=== PATIENT | male | born 1940 | race Caucasian/White ===

== ENCOUNTER 2019-04-14 13:01 | Day surgery (SDC) | payer MEDICARE, OTHER ==
[~2019-04-14] VITALS: Ht 175.3 cm; Wt 66.0 kg
[2019-04-14 14:02] VITALS: BP 124/77
== END 2019-04-14 20:20 | disposition home or self-care (01) ==
LOC: OUT 13:01 → 4NOR 19:00 → OUT 20:20
PROVIDERS: ATTEND Urology
DX: N30.20 Other chronic cystitis without hematuria (principal); E03.9 Hypothyroidism, unspecified; Z72.89 Other problems related to lifestyle; Z79.890 Hormone replacement therapy; Z96.611 Presence of right artificial shoulder joint; Z96.612 Presence of left artificial shoulder joint; Z85.51 Personal history of malignant neoplasm of bladder
CPT/HCPCS: 52224; 88305; 93005; J0690; J1100; J2405; J2704; J3010; J9201; G0378

== ENCOUNTER 2019-11-25 14:25 | Day surgery (SDC) | payer OTHER ==
[~2019-11-25] VITALS: Ht 175.3 cm; Wt 64.9 kg
[~2019-11-25 14:25] MED LIST: ACET650T17 PO; CHOL10003 PO; CIPR-184 PO; LEVO25TA4 PO
[2019-11-25] MEDS ORDERED: LACTATED RINGERS 1,000 ML IV SCH (14:44)
[2019-11-25 15:00] VITALS: BP 127/79
[2019-11-25 15:36] LABS: MICROSCOPIC INDICATED
[2019-11-25] MEDS ORDERED: FENTANYL PF 100 MCG/2ML ONE ×3 (17:08→19:25)
[2019-11-25] MEDS ORDERED: GEMCITABINE HCL 2,000 MG in SODIUM CHLORIDE 0.9% 47.4 ML IS ONE (17:30)
[2019-11-25] MEDS ORDERED: PROMETHAZINE 25 MG/ML, 1ML IV PRN (18:00)
[2019-11-25] MEDS ORDERED: ONDANSETRON 2MG/ML, 2ML IV PRN (18:00)
[2019-11-25] MEDS ORDERED: PROMETHAZINE 25 MG SUPP PR PRN (18:00)
[2019-11-25] MEDS ORDERED: ACETAMINOPHEN 325 MG TABLET PO PRN (18:00)
[2019-11-25] MEDS ORDERED: ONDANSETRON ODT 8 MG PO PRN (18:00)
[2019-11-25] MEDS ORDERED: OXYcodone 5 MG/5 ML ORAL.SOL UDC PO PRN (18:00)
[2019-11-25] MEDS ORDERED: LORazepam 2 MG/ML, 1ML IVPush PRN (18:00)
[2019-11-25] MEDS ORDERED: DEXAMETHASONE 4 MG/ML, 1ML ONE (18:46)
[2019-11-25] MEDS ORDERED: GLYCOPYRROLATE 0.2MG/1ML, 5ML ONE (18:46)
[2019-11-25] MEDS ORDERED: PROPOFOL 10 MG/ML, 20ML ONE (18:46)
[2019-11-25] MEDS ORDERED: SUCCINYLCHOLINE 20 MG/ML, 10ML ONE (18:46)
[2019-11-25] MEDS ORDERED: CEFAZOLIN 1,000 MG ONE (18:46)
[2019-11-25] MEDS ORDERED: NEOSTIGMINE 1 MG/ML, 10ML ONE (18:46)
[2019-11-25] MEDS ORDERED: ONDANSETRON 2MG/ML, 2ML ONE (18:46)
[2019-11-25] MEDS ORDERED: ROCURONIUM 10MG/ML,5ML ONE (18:46)
[2019-11-25] MEDS ORDERED: SUGAMMADEX 200 MG/2 ML IVPush ONE (18:46)
[2019-11-25] MEDS ORDERED: HYDROmorphone 1 MG/ML, 1ML INJ ONE ×2 (19:12→19:26)
[2019-11-25] MEDS ORDERED: OXYcodone 5 MG/5 ML ORAL.SOL UDC ONE (19:12)
[2019-11-25] MEDS: FENTANYL PF 100 MCG/2ML IV PRN ×4 (19:13→19:35)
[2019-11-25] MEDS: HYDROmorphone 1 MG/ML, 1ML INJ IVPush PRN ×3 (19:20→19:30)
[2019-11-25] MEDS ORDERED: DIAZEPAM 5 MG/ML, 2ML ONE (19:47)
[2019-11-25] MEDS ORDERED: DIAZEPAM 5 MG/ML, 2ML IVPush PRN (20:00)
== END 2019-11-25 23:00 | disposition home or self-care (01) ==
LOC: OR 14:25 → 4NE 20:33 → OR 23:00
PROVIDERS: ATTEND Urology
DX: D49.4 Neoplasm of unspecified behavior of bladder (principal); D49.59 Neoplasm of unspecified behavior of other genitourinary organ; C66.2 Malignant neoplasm of left ureter; E03.9 Hypothyroidism, unspecified; M19.90 Unspecified osteoarthritis, unspecified site; Z79.899 Other long term (current) drug therapy; Z87.891 Personal history of nicotine dependence; Z85.51 Personal history of malignant neoplasm of bladder; Z96.611 Presence of right artificial shoulder joint; Z96.612 Presence of left artificial shoulder joint; Z98.890 Other specified postprocedural states
CPT/HCPCS: 52332; 52354; 52500; 74018; 81001; 87086; 88305; 88307; 93005; C1758; C1769; C2617; J0330; J0690; J1100; J1170; J2405; J2704; J2710; J3010; J3360; J7120; 76000; G0378

== ENCOUNTER 2020-05-17 09:47 | Day surgery (SDC) | payer OTHER ==
[~2020-05-17] VITALS: Ht 175.3 cm; Wt 62.8 kg
[2020-05-17] MEDS ORDERED: LEVO50TA5 PO (10:14)
[2020-05-17 10:16] VITALS: BP 132/67
[2020-05-17] MEDS ORDERED: LACTATED RINGERS 1,000 ML IV SCH (10:16)
[2020-05-17] MEDS ORDERED: CHLORHEXIDINE 15 ML UDC MM ONE (10:30)
[2020-05-17 10:43] LABS: ANION GAP 5 mmol/L (5-15); BASOPHILS # (AUTO) 0.04 x10^3/uL (0-0.1); BASOPHILS % (AUTO) 1 % (0-1); CALCIUM 9.3 mg/dL (8.5-10.1); CHLORIDE 109 mmol/L (98-107); CREATININE 1.13 mg/dL (0.7-1.3); EOSINOPHILS # (AUTO) 0.15 x10^3/uL (0-0.4); EOSINOPHILS % (AUTO) 3 % (1-7); LYMPHOCYTES # (AUTO) 1.86 x10^3/uL (1-3.4); LYMPHOCYTES % (AUTO) 31 % (22-44); MD NO; MEAN CORPUSCULAR HEMOGLOBIN 30.8 pg (27.5-34.5); MEAN CORPUSCULAR HGB CONC 33.3 g/dL (33.2-36.2); MEAN CORPUSCULAR VOLUME 92.6 fL (81-97); MEAN PLATELET VOLUME 8.1 fL (7.4-10.4); MONOCYTES # (AUTO) 0.49 x10^3/uL (0.2-0.8); MONOCYTES % (AUTO) 8 % (2-9); NEUTROPHILS # (AUTO) 3.43 x10^3/uL (1.8-6.8); NEUTROPHILS % (AUTO) 57 % (42-75); PLATELET COUNT 210 x10^3/uL (130-400); RED BLOOD COUNT 4.53 x10^6/uL (4.38-5.82); RED CELL DISTRIBUTION WIDTH 14.2 % (9.4-14.8)
[2020-05-17 10:51] LABS: MICROSCOPIC NOT IND
[2020-05-17] MEDS ORDERED: DEXAMETHASONE 4 MG/ML, 1ML ONE ×2 (11:59→13:33)
[2020-05-17] MEDS ORDERED: FENTANYL PF 100 MCG/2ML ONE ×2 (11:59→13:33)
[2020-05-17] MEDS ORDERED: MIDAZOLAM 1 MG/ML, 2ML ONE ×2 (11:59→13:33)
[2020-05-17] MEDS ORDERED: GLYCOPYRROLATE 0.2MG/1ML, 5ML ONE ×2 (11:59→13:33)
[2020-05-17] MEDS ORDERED: LIDOCAINE-MPF 2% ,5ML ONE ×2 (11:59→13:33)
[2020-05-17] MEDS ORDERED: ROCURONIUM 10MG/ML,5ML ONE ×2 (11:59→13:33)
[2020-05-17] MEDS ORDERED: PROPOFOL 10 MG/ML, 20ML ONE ×2 (11:59→13:33)
[2020-05-17] MEDS ORDERED: CEFAZOLIN 1,000 MG ONE (13:33)
[2020-05-17] MEDS ORDERED: OXYcodone 5 MG/5 ML ORAL.SOL UDC PO PRN (14:00)
[2020-05-17] MEDS ORDERED: hydrALAzine 20 MG/ML, 1ML IV PRN (14:00)
[2020-05-17] MEDS ORDERED: KETOROLAC 30 MG/1 ML IV PRN (14:00)
[2020-05-17] MEDS ORDERED: HYDROmorphone 1 MG/ML, 1ML INJ IVPush PRN (14:00)
[2020-05-17] MEDS ORDERED: DIAZEPAM 5 MG/ML, 2ML IVPush PRN (14:00)
[2020-05-17] MEDS ORDERED: HALOPERIDOL 5 MG/ML IV PRN (14:00)
[2020-05-17] MEDS ORDERED: LABETALOL 5MG/ML, 20ML IV PRN (14:00)
[2020-05-17] MEDS ORDERED: ACETAMINOPHEN 325 MG TABLET PO PRN (14:00)
[2020-05-17] MEDS ORDERED: MEPERIDINE/PF 25MG/0.5ML IVPush PRN (14:00)
[2020-05-17] MEDS ORDERED: MIDAZOLAM 1 MG/ML, 2ML IV PRN (14:00)
[2020-05-17] MEDS ORDERED: LORazepam 2 MG/ML, 1ML IVPush PRN (14:00)
[2020-05-17] MEDS ORDERED: ALBUTEROL/IPRATROPIUM 2.5MG/0.5MG, 3 ML NPPB PRN (14:00)
[2020-05-17] MEDS ORDERED: HYDROcodone/APAP 7.5-325MG/15ML UDC PO PRN (14:00)
[2020-05-17] MEDS ORDERED: FENTANYL PF 100 MCG/2ML IV PRN (14:00)
[2020-05-17] MEDS ORDERED: METHOCARBAMOL 1,000 MG in DEXTROSE 5% 100 ML IV PRN (14:00)
[2020-05-17] MEDS ORDERED: ONDANSETRON 2MG/ML, 2ML IVPush PRN (14:00)
[2020-05-17] MEDS ORDERED: DIPHENHYDRAMINE 50 MG/ML, 1ML IVPush PRN (14:00)
[2020-05-17] MEDS ORDERED: EPHEDRINE 50 MG/ML, 1ML IVPush PRN (14:00)
[2020-05-17] MEDS ORDERED: LABETALOL 5MG/ML, 20ML ONE (14:57)
== END 2020-05-17 16:45 | disposition home or self-care (01) ==
LOC: OUT 09:47
PROVIDERS: ATTEND Urology
DX: N13.5 Crossing vessel and stricture of ureter without hydronephrosis (principal); N30.20 Other chronic cystitis without hematuria; N40.0 Benign prostatic hyperplasia without lower urinary tract symptoms; I25.10 Atherosclerotic heart disease of native coronary artery without angina pectoris; E03.9 Hypothyroidism, unspecified; Z79.890 Hormone replacement therapy; Z85.51 Personal history of malignant neoplasm of bladder; Z98.890 Other specified postprocedural states
CPT/HCPCS: 36415; 52204; 52351; 80048; 81003; 85025; 88305; 93005; J0690; J1100; J1885; J2250; J2704; J3010; J7120

== ENCOUNTER 2020-08-02 12:10 | Day surgery (SDC) | payer OTHER ==
[~2020-08-02] VITALS: Ht 175.3 cm; Wt 62.8 kg
[~2020-08-02 12:10] MED LIST changes: +CEFAZOLIN 1,000 MG ONE; +DEXAMETHASONE 4 MG/ML, 1ML ONE; +LEVO50TA5 PO; +NEOSTIGMINE 1 MG/ML, 10ML ONE; +ONDANSETRON 2MG/ML, 2ML ONE; +PROPOFOL 10 MG/ML, 20ML ONE; +ROCURONIUM 10MG/ML,5ML ONE
[2020-08-02 12:57] VITALS: BP 135/75
[2020-08-02] MEDS ORDERED: LACTATED RINGERS 1,000 ML IV SCH (13:00)
[2020-08-02] MEDS ORDERED: CHLORHEXIDINE 15 ML UDC MM ONE (13:00)
[2020-08-02] MEDS ORDERED: FENTANYL PF 250 MCG/5ML ONE (14:00)
[2020-08-02] MEDS ORDERED: GLYCOPYRROLATE 0.2MG/1ML, 5ML ONE ×23 (15:17→15:42)
[2020-08-02] MEDS ORDERED: LORazepam 2 MG/ML, 1ML IVPush PRN (15:30)
[2020-08-02] MEDS ORDERED: MEPERIDINE/PF 25MG/0.5ML IVPush PRN (15:30)
[2020-08-02] MEDS ORDERED: ONDANSETRON 2MG/ML, 2ML IVPush PRN (15:30)
[2020-08-02] MEDS ORDERED: ACETAMINOPHEN 325 MG TABLET PO PRN (15:30)
[2020-08-02] MEDS ORDERED: FENTANYL PF 100 MCG/2ML IV PRN (15:30)
[2020-08-02] MEDS ORDERED: OXYcodone 5 MG/5 ML ORAL.SOL UDC PO PRN (15:30)
[2020-08-02] MEDS ORDERED: EPHEDRINE 50 MG/ML, 1ML IVPush PRN (15:30)
[2020-08-02] MEDS ORDERED: hydrALAzine 20 MG/ML, 1ML IV PRN (15:30)
[2020-08-02] MEDS ORDERED: HYDROmorphone 1 MG/ML, 1ML INJ IVPush PRN (15:30)
[2020-08-02] MEDS ORDERED: METHOCARBAMOL 1,000 MG in DEXTROSE 5% 100 ML IV PRN (15:30)
[2020-08-02] MEDS ORDERED: HALOPERIDOL 5 MG/ML IV PRN (15:30)
[2020-08-02] MEDS ORDERED: LABETALOL 5MG/ML, 20ML IV PRN (15:30)
[2020-08-02] MEDS ORDERED: PROPOFOL 50 ML ONE (15:42)
[2020-08-02] MEDS ORDERED: OXYcodone 5 MG/5 ML ORAL.SOL UDC ONE (15:43)
[2020-08-02] MEDS ORDERED: ACETAMINOPHEN 650 MG/20.3 ML UDC ONE (15:46)
== END 2020-08-02 17:15 | disposition home or self-care (01) ==
LOC: OUT 12:10
PROVIDERS: ATTEND Urology
DX: C66.2 Malignant neoplasm of left ureter (principal); C67.9 Malignant neoplasm of bladder, unspecified; N13.5 Crossing vessel and stricture of ureter without hydronephrosis; E03.9 Hypothyroidism, unspecified; F12.90 Cannabis use, unspecified, uncomplicated; Z79.899 Other long term (current) drug therapy; Z98.890 Other specified postprocedural states; Z72.89 Other problems related to lifestyle; Z87.891 Personal history of nicotine dependence; Z82.49 Family history of ischemic heart disease and other diseases of the circulatory system
CPT/HCPCS: 52354; 88305; 88341; 88342; 93005; J0690; J1100; J2405; J2704; J2710; J3010; J7120

== ENCOUNTER 2021-02-16 11:08 | Day surgery (SDC) | payer OTHER ==
[~2021-02-16] VITALS: Ht 175.3 cm; Wt 63.9 kg
[~2021-02-16 11:08] MED LIST changes: -CEFAZOLIN 1,000 MG ONE; -DEXAMETHASONE 4 MG/ML, 1ML ONE; +DOCU-131 PO; -NEOSTIGMINE 1 MG/ML, 10ML ONE; -ONDANSETRON 2MG/ML, 2ML ONE; -PROPOFOL 10 MG/ML, 20ML ONE; -ROCURONIUM 10MG/ML,5ML ONE; +TAMS-11 PO
[2021-02-16] MEDS ORDERED: VITAMIN C PO (11:55)
[2021-02-16] MEDS ORDERED: ZINC PO (11:55)
[2021-02-16] MEDS ORDERED: CALCIUM PO (11:55)
[2021-02-16 11:57] VITALS: BP 138/73
[2021-02-16] MEDS ORDERED: CHLORHEXIDINE 15 ML UDC PO ONE (12:00)
[2021-02-16] MEDS ORDERED: LACTATED RINGERS 1,000 ML IV SCH (12:00)
[2021-02-16 12:39] LABS: INTERNATIONAL NORMALIZED RATIO 1.03 (0.93-1.1)
[2021-02-16] MEDS ORDERED: FENTANYL PF 100 MCG/2ML ONE (13:45)
[2021-02-16] MEDS ORDERED: ONDANSETRON 2MG/ML, 2ML ONE (13:53)
[2021-02-16] MEDS ORDERED: CEFAZOLIN 1,000 MG ONE (13:53)
[2021-02-16] MEDS ORDERED: DEXAMETHASONE 4 MG/ML, 1ML ONE (13:53)
[2021-02-16] MEDS ORDERED: PHENYLEPHRINE 10 MG/ML ONE (13:53)
[2021-02-16] MEDS ORDERED: PROPOFOL 10 MG/ML, 20ML ONE (13:53)
[2021-02-16] MEDS ORDERED: FENTANYL PF 100 MCG/2ML IV PRN (14:30)
[2021-02-16] MEDS ORDERED: METOPROLOL 1 MG/ML, 5ML IV PRN (14:30)
[2021-02-16] MEDS ORDERED: HYDROmorphone 1 MG/ML, 1ML INJ IVPush PRN (14:30)
[2021-02-16] MEDS ORDERED: MEPERIDINE/PF 25MG/0.5ML IVPush PRN (14:30)
[2021-02-16] MEDS ORDERED: METOCLOPRAMIDE 5 MG/ML, 2ML IVPush PRN (14:30)
[2021-02-16] MEDS ORDERED: PROMETHAZINE 25 MG/ML, 1ML IVPush PRN (14:30)
[2021-02-16] MEDS ORDERED: ONDANSETRON 2MG/ML, 2ML IVPush PRN (14:30)
[2021-02-16] MEDS ORDERED: DIPHENHYDRAMINE 50 MG/ML, 1ML IVPush PRN (14:30)
[2021-02-16] MEDS ORDERED: hydrALAzine 20 MG/ML, 1ML IV PRN (14:30)
[2021-02-16] MEDS ORDERED: EPHEDRINE 50 MG/ML, 1ML IVPush PRN (14:30)
[2021-02-16] MEDS ORDERED: OXYcodone 5 MG/5 ML ORAL.SOL UDC PO PRN (14:30)
[2021-02-16] MEDS ORDERED: DIAZEPAM 5 MG/ML, 2ML IVPush PRN (14:30)
[2021-02-16] MEDS ORDERED: HALOPERIDOL 5 MG/ML IV PRN (14:30)
[2021-02-16] MEDS ORDERED: LABETALOL 5MG/ML, 20ML IV PRN (14:30)
[2021-02-16] MEDS ORDERED: ACETAMINOPHEN 325 MG TABLET PO PRN (14:30)
== END 2021-02-16 16:35 | disposition home or self-care (01) ==
LOC: OUT 11:08
PROVIDERS: ATTEND Student in an Organized Health Care Education/Training Program
DX: Z04.89 Encounter for examination and observation for other specified reasons (principal); C67.2 Malignant neoplasm of lateral wall of bladder; N40.0 Benign prostatic hyperplasia without lower urinary tract symptoms; N13.30 Unspecified hydronephrosis; N39.0 Urinary tract infection, site not specified; E03.9 Hypothyroidism, unspecified; M19.90 Unspecified osteoarthritis, unspecified site; Z20.822 Contact with and (suspected) exposure to COVID-19; Z79.01 Long term (current) use of anticoagulants; Z79.890 Hormone replacement therapy; Z87.891 Personal history of nicotine dependence; Z85.54 Personal history of malignant neoplasm of ureter; Z85.51 Personal history of malignant neoplasm of bladder; Z90.6 Acquired absence of other parts of urinary tract
CPT/HCPCS: 36415; 52204; 85610; 87635; 88305; 88341; 88342; C1758; C1769; J0690; J1100; J2370; J2405; J2704; J3010; J7120